=== PATIENT | female | born 1990 | race Caucasian/White ===

== ENCOUNTER 2017-02-15 21:10 | Emergency (ER) | payer OTHER ==
[~2017-02-15] VITALS: Ht 162.6 cm; Wt 83.9 kg
[~2017-02-15 21:10] MED LIST: BCP; IBUP-1222 PO; OXYC-302 PO; PREN1TAB52 PO
[2017-02-15 21:12] VITALS: BP 129/76
[2017-02-15] MEDS ORDERED: PNV (21:16)
[2017-02-15] MEDS ORDERED: FAMO-79 PO (21:16)
[2017-02-16 00:23] LABS: HEMOGLOBIN 13.2 g/dL (11.7-16.4); WHITE BLOOD COUNT 10.5 x10^3/uL (3.4-10)
[2017-02-16 00:43] LABS: PATH.CAST-FLAG NOT PRESENT; SPERM-FLAG NOT PRESENT; SRC-FLAG NOT PRESENT; XTAL-FLAG NOT PRESENT; YLC-FLAG NOT PRESENT
== END 2017-02-16 01:51 | disposition home or self-care (01) ==
LOC: ED 23:59
DX: O20.0 Threatened abortion (principal); K21.9 Gastro-esophageal reflux disease without esophagitis; K22.70 Barrett's esophagus without dysplasia; Z87.891 Personal history of nicotine dependence; Z3A.12 12 weeks gestation of pregnancy
CPT/HCPCS: 36415; 76801; 81001; 85025; 86901; 99285

== ENCOUNTER 2017-06-16 16:54 | Outpatient (CLI) | payer OTHER ==
[~2017-06-16] VITALS: Ht 162.6 cm; Wt 91.4 kg
[~2017-06-16 16:54] MED LIST changes: +FAMO-79 PO; +PNV
[2017-06-16 17:41] LABS: MICROSCOPIC INDICATED
[2017-06-16 18:08] VITALS: BP 117/78
[2017-06-16] MEDS ORDERED: HYDROcodone/APAP 10/325 MG TABLET PO ONE (18:30)
[2017-06-16] MEDS ORDERED: TERBUTALINE 1 MG/ML, 1ML IV ONE (18:30)
[2017-06-16] MEDS ORDERED: HYDROcodone/APAP 10/325 MG TABLET ONE (18:39)
[2017-06-16] MEDS ORDERED: TERBUTALINE 1 MG/ML, 1ML ONE (18:40)
== END 2017-06-16 19:20 | disposition home or self-care (01) ==
LOC: LDOP 16:54
PROVIDERS: ATTEND Obstetrics & Gynecology Gynecology
DX: O26.899 Other specified pregnancy related conditions, unspecified trimester (principal); R10.9 Unspecified abdominal pain; Z3A.00 Weeks of gestation of pregnancy not specified
CPT/HCPCS: 59025; 76817; 81001; 87086; 99211; J3105; G0463

== ENCOUNTER → 2017-08-21 | Outpatient (CLI) | payer OTHER ==
[~2017-08-21] VITALS: Ht 162.6 cm; Wt 93.6 kg
[~2017-08-21] MED LIST changes: +PREN1TAB60 PO
[2017-08-21 11:55] VITALS: BP 113/79
== END | disposition home or self-care (01) ==
LOC: LDOP 11:10
PROVIDERS: ATTEND Obstetrics & Gynecology Gynecology
DX: O26.893 Other specified pregnancy related conditions, third trimester (principal); R10.9 Unspecified abdominal pain; Z3A.39 39 weeks gestation of pregnancy
CPT/HCPCS: 59025; 84112; 99211; G0463

== ENCOUNTER 2017-08-25 05:52 | Inpatient (IN) | payer OTHER ==
[~2017-08-25] VITALS: Ht 162.6 cm; Wt 94.5 kg
[~2017-08-25 05:52] MED LIST changes: -PREN1TAB60 PO
[2017-08-25] MEDS: D5%-LACTATED RINGERS 1,000 ML IV SCH ×3 (06:47→22:47)
[2017-08-25] MEDS ORDERED: OXYTOCIN 30U/ 0.9% NaCL 500ML 500 ML IV PRN (06:47)
[2017-08-25] MEDS ORDERED: OXYTOCIN 30U/ 0.9% NaCL 500ML 500 ML IV ONE (06:47)
[2017-08-25] MEDS: LACTATED RINGERS 1,000 ML IV SCH ×4 (06:56→16:06)
[2017-08-25] MEDS ORDERED: FENTANYL PF 100 MCG/2ML IVPush PRN (07:00)
[2017-08-25] MEDS ORDERED: CALCIUM CARBONATE 500 MG TAB.CHEW PO PRN (07:00)
[2017-08-25] MEDS ORDERED: TERBUTALINE 1 MG/ML, 1ML IVPush PRN (07:00)
[2017-08-25] MEDS ORDERED: FENTANYL PF 100 MCG/2ML IV PRN (07:00)
[2017-08-25 07:07] LABS: BASOPHILS # (AUTO) 0.01 x10^3/uL (0-0.1); BASOPHILS % (AUTO) 0 % (0-1); EOSINOPHILS # (AUTO) 0.07 x10^3/uL (0-0.4); EOSINOPHILS % (AUTO) 1 % (1-7); LYMPHOCYTES # (AUTO) 2.26 x10^3/uL (1-3.4); LYMPHOCYTES % (AUTO) 20 % (22-44); MD NO; MEAN CORPUSCULAR HEMOGLOBIN 29.4 pg (27.0-34.8); MEAN CORPUSCULAR VOLUME 86.6 fL (80-100); MEAN PLATELET VOLUME 7.4 fL (7.4-10.4); MONOCYTES # (AUTO) 0.71 x10^3/uL (0.2-0.8); MONOCYTES % (AUTO) 6 % (2-9); NEUTROPHILS # (AUTO) 8.12 x10^3/uL (1.8-6.8); NEUTROPHILS % (AUTO) 73 % (42-75); PLATELET COUNT 219 x10^3/uL (130-400); RED BLOOD COUNT 4.03 x10^6/uL (3.82-5.3); RED CELL DISTRIBUTION WIDTH 14.1 % (9.6-15.2)
[2017-08-25] MEDS ORDERED: NEWBORN KIT ONE (07:17)
[2017-08-25] MEDS ORDERED: OXYTOCIN 30U/ 0.9% NaCL 500ML 500 ML ONE ×2 (07:17→13:00)
[2017-08-25] MEDS ORDERED: FENTANYL/BUPIV./NS/PF 250 ML EPIDCONT ONE (07:30)
[2017-08-25] MEDS ORDERED: BUPIVACAINE 0.25% ONE (07:30)
[2017-08-25] MEDS ORDERED: LIDOCAINE/PF 1.5%-EPI 1:200K, 30ML ONE (07:33)
[2017-08-25 08:06] VITALS: BP 117/78
[2017-08-25] MEDS ORDERED: FENTANYL/BUPIV./NS/PF 250 ML EPIDCONT SCH (08:06)
[2017-08-25] MEDS ORDERED: LACTATED RINGERS 1,000 ML IVBOLUS PRN (08:30)
[2017-08-25] MEDS ORDERED: EPHEDRINE 50 MG/ML, 1ML IVPush PRN (08:30)
[2017-08-25] MEDS ORDERED: NALOXONE 0.4 MG/ML, 1ML IVPush PRN (08:30)
[2017-08-25] MEDS ORDERED: CALCIUM CARBONATE 500 MG TAB.CHEW ONE (08:38)
[2017-08-25] MEDS ORDERED: MISOPROSTOL 200 MCG TABLET PR PRN (10:30)
[2017-08-25] MEDS ORDERED: ONDANSETRON 2MG/ML, 2ML IVPush PRN (11:00)
[2017-08-25] MEDS: OXYTOCIN 30U/ 0.9% NaCL 500ML 500 ML IV SCH ×2 (11:33→13:03)
[2017-08-25] MEDS ORDERED: IBUPROFEN 600 MG TABLET ONE (13:56)
[2017-08-25] MEDS ORDERED: OXYcodone/APAP 5/325MG TABLET ONE (13:56)
[2017-08-25] MEDS: OXYcodone/APAP 5/325MG TABLET PO PRN ×3 (13:59→21:20)
[2017-08-25] MEDS: IBUPROFEN 600 MG TABLET PO PRN ×2 (13:59→21:20)
[2017-08-25] MEDS ORDERED: ONDANSETRON 2MG/ML, 2ML ONE (14:42)
[2017-08-25 15:05] VITALS: BP 122/80
[2017-08-25 19:50] LABS: BASOPHILS # (AUTO) 0.04 x10^3/uL (0-0.1); BASOPHILS % (AUTO) 0 % (0-1); EOSINOPHILS # (AUTO) 0.05 x10^3/uL (0-0.4); EOSINOPHILS % (AUTO) 0 % (1-7); LYMPHOCYTES # (AUTO) 1.88 x10^3/uL (1-3.4); LYMPHOCYTES % (AUTO) 12 % (22-44); MD NO; MEAN CORPUSCULAR HEMOGLOBIN 29.5 pg (27.0-34.8); MEAN CORPUSCULAR HGB CONC 33.9 g/dL (32.4-35.8); MEAN CORPUSCULAR VOLUME 87.1 fL (80-100); MEAN PLATELET VOLUME 7.4 fL (7.4-10.4); MONOCYTES # (AUTO) 0.91 x10^3/uL (0.2-0.8); MONOCYTES % (AUTO) 6 % (2-9); NEUTROPHILS # (AUTO) 12.57 x10^3/uL (1.8-6.8); NEUTROPHILS % (AUTO) 81 % (42-75); PLATELET COUNT 241 x10^3/uL (130-400); RED BLOOD COUNT 3.86 x10^6/uL (3.82-5.3); RED CELL DISTRIBUTION WIDTH 13.9 % (9.6-15.2)
[2017-08-25 20:20] VITALS: BP 112/75
[2017-08-25] MEDS: DOCUSATE 100 MG CAPSULE PO PRN (21:20)
[2017-08-26] MEDS: LACTATED RINGERS 1,000 ML IV SCH ×2 (00:06→06:47)
[2017-08-26 00:30] VITALS: BP 109/66
[2017-08-26 04:20] VITALS: BP 112/68
[2017-08-26] MEDS: IBUPROFEN 600 MG TABLET PO PRN ×2 (04:25→11:12)
[2017-08-26] MEDS: OXYcodone/APAP 5/325MG TABLET PO PRN ×3 (04:25→12:51)
[2017-08-26] MEDS: OXYTOCIN 30U/ 0.9% NaCL 500ML 500 ML IV SCH (06:03)
[2017-08-26] MEDS: D5%-LACTATED RINGERS 1,000 ML IV SCH (06:47)
[2017-08-26 07:30] VITALS: BP 116/74
[2017-08-26] MEDS: DOCUSATE 100 MG CAPSULE PO PRN (07:46)
[2017-08-26] MEDS ORDERED: PRENATAL VIT/IRON/FA 1 EACH TABLET PO SCH (09:00)
[2017-08-26] MEDS ORDERED: IBUP-1222 PO (12:56)
[2017-08-26] MEDS ORDERED: PREN1TAB60 PO (12:56)
== END 2017-08-26 13:32 | disposition home or self-care (01) | DRG 775 ==
LOC: LDOP 05:52 → LDIP 06:51 → 2NW 15:27
PROVIDERS: ADMIT Obstetrics & Gynecology Gynecology; ATTEND Obstetrics & Gynecology Gynecology
PROC: 10E0XZZ Delivery of Products of Conception, External Approach (ICD-10-PCS; principal; 2017-08-25)
PROC: 0KQM0ZZ Repair Perineum Muscle, Open Approach (ICD-10-PCS; 2017-08-25)
PROC: 3E0R3BZ Introduction of Anesthetic Agent into Spinal Canal, Percutaneous Approach (ICD-10-PCS; 2017-08-25)
PROC: 00HU33Z Insertion of Infusion Device into Spinal Canal, Percutaneous Approach (ICD-10-PCS; 2017-08-25)
DX: O69.2XX0 Labor and delivery complicated by other cord entanglement, with compression, not applicable or unspecified (principal); Z37.0 Single live birth; O69.81X0 Labor and delivery complicated by cord around neck, without compression, not applicable or unspecified; O70.1 Second degree perineal laceration during delivery; Z3A.39 39 weeks gestation of pregnancy
CPT/HCPCS: 36415; 85025; 86850; 86900; J2405; J3490; J2590; J3010; J7120

== ENCOUNTER 2017-10-10 16:01 | Emergency (ER) | payer OTHER ==
[~2017-10-10] VITALS: Ht 162.6 cm; Wt 88.0 kg
[~2017-10-10 16:01] MED LIST changes: +PREN1TAB60 PO
[2017-10-10 16:25] LABS: BASOPHILS # (AUTO) 0.06 x10^3/uL (0-0.1); BASOPHILS % (AUTO) 1 % (0-1); EOSINOPHILS # (AUTO) 0.12 x10^3/uL (0-0.4); EOSINOPHILS % (AUTO) 1 % (1-7); LYMPHOCYTES # (AUTO) 2.48 x10^3/uL (1-3.4); LYMPHOCYTES % (AUTO) 26 % (22-44); MD NO; MEAN CORPUSCULAR HEMOGLOBIN 29.2 pg (27.0-34.8); MEAN CORPUSCULAR HGB CONC 33.7 g/dL (32.4-35.8); MEAN CORPUSCULAR VOLUME 86.5 fL (80-100); MEAN PLATELET VOLUME 8.3 fL (7.4-10.4); MONOCYTES # (AUTO) 0.52 x10^3/uL (0.2-0.8); MONOCYTES % (AUTO) 6 % (2-9); NEUTROPHILS # (AUTO) 6.32 x10^3/uL (1.8-6.8); NEUTROPHILS % (AUTO) 67 % (42-75); PLATELET COUNT 309 x10^3/uL (130-400); RED BLOOD COUNT 4.94 x10^6/uL (3.82-5.3); RED CELL DISTRIBUTION WIDTH 13.6 % (9.6-15.2)
[2017-10-10 16:37] LABS: ANION GAP 9 mmol/L (5-15); CALCIUM 8.7 mg/dL (8.5-10.1); CHLORIDE 106 mmol/L (98-107); CREATININE 1.08 mg/dL (0.55-1.02)
[2017-10-10 16:40] LABS: ACETAMINOPHEN < 2 mcg/mL (10-30); SALICYLATE LEVEL < 1.7 mg/dL (2.8-20.0)
[2017-10-10 17:06] LABS: CULTURE INDICATED? YES; MICROSCOPIC INDICATED
[2017-10-10 17:09] LABS: AMPHETAMINE SCREEN, URINE Negative (Negative); BARBITURATE SCREEN, URINE Negative (Negative); BENZODIAZEPINE SCREEN, URINE Negative (Negative); CANNABINOID SCREEN, URINE Positive (Negative); COCAINE SCREEN, URINE Negative (Negative); METHADONE SCREEN, URINE Negative (Negative); OPIATE SCREEN, URINE Negative (Negative)
[2017-10-10] MEDS ORDERED: ACETAMINOPHEN 325 MG TABLET PO PRN (21:30)
[2017-10-10] MEDS ORDERED: DOCUSATE 100 MG CAPSULE PO PRN (21:30)
[2017-10-10] MEDS ORDERED: ONDANSETRON ODT 4 MG PO PRN (21:30)
[2017-10-11 03:12] VITALS: BP 114/78
== END 2017-10-11 03:39 ==
LOC: ED 17:36 → UNDOADMOB 20:27 → EDIP 20:27 → ED 10-11 03:39
DX: Z02.89 Encounter for other administrative examinations (principal); R45.851 Suicidal ideations
CPT/HCPCS: 36415; 80048; 80307; 80329; 81001; 82040; 84703; 85025; 87086; 99285; G0480

== ENCOUNTER → 2017-12-25 | Outpatient (CLI) | payer OTHER ==
[~2017-12-25] MED LIST changes: +FLUO20CA19 PO
[2017-12-25 13:31] LABS: CULTURE INDICATED? NO; MICROSCOPIC NOT IND
[2017-12-25 13:31] LABS: BASOPHILS # (AUTO) 0.03 x10^3/uL (0-0.1); BASOPHILS % (AUTO) 1 % (0-1); EOSINOPHILS % (AUTO) 2 % (1-7); LYMPHOCYTES # (AUTO) 1.65 x10^3/uL (1-3.4); LYMPHOCYTES % (AUTO) 27 % (22-44); MD NO; MEAN CORPUSCULAR HEMOGLOBIN 28.8 pg (27.0-34.8); MEAN CORPUSCULAR HGB CONC 33.7 g/dL (32.4-35.8); MEAN CORPUSCULAR VOLUME 85.5 fL (80-100); MEAN PLATELET VOLUME 8.2 fL (7.4-10.4); MONOCYTES % (AUTO) 7 % (2-9); NEUTROPHILS # (AUTO) 3.84 x10^3/uL (1.8-6.8); NEUTROPHILS % (AUTO) 64 % (42-75); PLATELET COUNT 288 x10^3/uL (130-400); RED BLOOD COUNT 5.03 x10^6/uL (3.82-5.3); RED CELL DISTRIBUTION WIDTH 13.5 % (9.6-15.2)
[2017-12-25 13:44] LABS: ALANINE AMINOTRANSFERASE 21 U/L (12-78); ANION GAP 6 mmol/L (5-15); CHLORIDE 103 mmol/L (98-107)
[2017-12-25 13:49] LABS: ALKALINE PHOSPHATASE 93 U/L (45-117); BILIRUBIN,TOTAL 1.1 mg/dL (0.2-1.0); CREATININE 0.86 mg/dL (0.55-1.02); TOTAL PROTEIN 8.1 g/dL (6.4-8.2)
== END | disposition home or self-care (01) ==
LOC: STAR 12:33
PROVIDERS: ATTEND Obstetrics & Gynecology Gynecology
DX: Z30.2 Encounter for sterilization (principal)
CPT/HCPCS: 36415; 80053; 81003; 84702; 85025

== ENCOUNTER 2018-01-01 06:59 | Day surgery (SDC) | payer OTHER ==
[~2018-01-01] VITALS: Ht 162.6 cm; Wt 85.0 kg
[2018-01-01] MEDS ORDERED: SILVER NITRATE STICK TP ONE (08:10)
[2018-01-01] MEDS ORDERED: BUPIVACAINE/PF-EPI 0.5% 1:200K ONE (08:10)
[2018-01-01] MEDS ORDERED: LACTATED RINGERS 1,000 ML IV SCH (08:13)
[2018-01-01 08:14] VITALS: BP 107/77
[2018-01-01] MEDS ORDERED: ACETAMINOPHEN 500 MG TABLET PO ONE (08:30)
[2018-01-01] MEDS ORDERED: ONDANSETRON ODT 8 MG PO ONE (08:30)
[2018-01-01] MEDS ORDERED: LIDOCAINE-MPF 1%, 2ML INFIL ONE (08:30)
[2018-01-01] MEDS ORDERED: FENTANYL PF 100 MCG/2ML ONE ×2 (08:37→10:27)
[2018-01-01] MEDS ORDERED: MIDAZOLAM 1 MG/ML, 2ML ONE (08:37)
[2018-01-01] MEDS ORDERED: PROPOFOL 10 MG/ML, 20ML ONE (08:37)
[2018-01-01] MEDS ORDERED: LIDOCAINE-MPF 2% ,5ML ONE (08:37)
[2018-01-01] MEDS ORDERED: ROCURONIUM 10MG/ML,5ML ONE (08:38)
[2018-01-01 08:50] LABS: HCG UR SG 1.038 (1.003-1.030)
[2018-01-01] MEDS ORDERED: FENTANYL PF 100 MCG/2ML IV PRN (09:00)
[2018-01-01] MEDS ORDERED: ALBUTEROL SULFATE 2.5 MG/3 ML NPPB PRN (09:00)
[2018-01-01] MEDS ORDERED: MIDAZOLAM 1 MG/ML, 2ML IV PRN (09:00)
[2018-01-01] MEDS ORDERED: MEPERIDINE/PF 25MG/0.5ML IVPush PRN (09:00)
[2018-01-01] MEDS ORDERED: SUCCINYLCHOLINE 20 MG/ML, 10ML ONE (09:13)
[2018-01-01] MEDS ORDERED: CEFAZOLIN 1,000 MG ONE ×2 (09:13)
[2018-01-01] MEDS ORDERED: MEPERIDINE/PF 50 MG/ML ONE (10:03)
[2018-01-01] MEDS ORDERED: OXYcodone 5 MG/5 ML ORAL.SOL UDC ONE (10:03)
[2018-01-01] MEDS: OXYcodone 5 MG/5 ML ORAL.SOL UDC PO PRN ×2 (10:08→13:49)
[2018-01-01] MEDS ORDERED: KETOROLAC 30 MG/1 ML ONE (10:12)
[2018-01-01] MEDS ORDERED: KETOROLAC 30 MG/1 ML IVPush PRN (10:30)
== END 2018-01-01 14:20 | disposition home or self-care (01) ==
LOC: OUT 06:59
PROVIDERS: ATTEND Obstetrics & Gynecology Gynecology
DX: Z30.2 Encounter for sterilization (principal); G43.909 Migraine, unspecified, not intractable, without status migrainosus; A63.0 Anogenital (venereal) warts; Z79.899 Other long term (current) drug therapy; Z98.890 Other specified postprocedural states
CPT/HCPCS: 36415; 58661; 81025; 86850; 86900; 88302; J0330; J0690; J1885; J2175; J2250; J2704; J3010; J3490; J7120; Q0162